=== PATIENT | male | born 1945 | race Caucasian/White ===

== ENCOUNTER 2018-01-12 07:16 | Outpatient (CLI) | payer MEDICARE | END 2018-01-12 07:17 | disposition home or self-care (01) | LOC: BICULT 07:16 | PROVIDERS: ATTEND Family Medicine | DX: Z13.6 Encounter for screening for cardiovascular disorders (principal); Z00.00 Encounter for general adult medical examination without abnormal findings | CPT/HCPCS: 76775 ==

== ENCOUNTER 2019-03-07 07:30 | Outpatient (CLI) | payer MEDICARE ==
--- NOTE | 2019-03-07 08:27 | MRI ---
MRI Cervical Spine WO Con HISTORY: Neck pain and bilateral hand numbness for about 6 months. COMPARISON: None. FINDINGS: The vertebral bodies are normal in height. There is disc narrowing at C5-6. Cord signal yadiel nge is normal. Minimal anterolisthesis of C7 on T1 is noted. C2-3: Unremarkable. C3-4: Mild facet hypertrophic changes are associated with a mild to moderate degree of right-sided fo raminal narrowing and mild left-sided foraminal narrowing. C4-5: Minimal posterior osteophytic changes seen at this level. No significant canal stenosis. Facet and uncovertebral hypertrophic changes cause a mild to moderate right foraminal narrowing. C5-6: There is a broad-based posterior osteophytic bar and disc changes at this level associated with a moderate degree of canal narrowing and moderate right and moderately severe left foraminal stenosis C6-7: No significant canal or foraminal narrowing at this level C7-T1: Asymmetric left-sided facet and uncovertebral changes are associated with a moderate left fora bossman stenosis IMPRESSION: Multilevel areas of canal and foraminal stenosis as described above.
--- NOTE | 2019-03-07 08:34 | RAD ---
XR Cervical Spine 4 View Min HISTORY: Neck pain and bilateral arm pain. COMPARISON: None. FINDINGS: The C7 vertebral body is not well visualized on these images. There is mild disc narrowing at the C5-6 level with prominent anterior osteophytic change. Also degenerative facet changes are seen along the course of the spine. Restricted motion is seen at the C5-6 level. No abnormal motion i n flexion or extension. Incidental note of moderate carotid bulb calcifications. IMPRESSION: Arthritic changes of the spine.
== END 2019-03-07 07:31 | disposition home or self-care (01) ==
LOC: BICMRI 07:30
PROVIDERS: ATTEND Surgery
DX: R20.2 Paresthesia of skin (principal); M47.812 Spondylosis without myelopathy or radiculopathy, cervical region; M48.03 Spinal stenosis, cervicothoracic region
CPT/HCPCS: 72050; 72141

== ENCOUNTER 2019-04-21 09:16 | Outpatient (CLI) | payer MEDICARE ==
[2019-04-21 14:12] LABS: #Eosinphils 0.3 thou/uL (0.0-0.7); #Monocytes 0.5 thou/uL (0.11-0.59); #Neutrophils 3.4 thou/uL (1.40-6.50); %Basophils 0.1 % (0.0-1.0); %Lymphocytes 32.2 % (21.0-51.0); %Monocytes 8.5 % (0.0-10.0); %Neutrophils 55.1 % (42.0-75.0); Hemoglobin 14.9 g/dL (14.0-18.0); Mean Corpuscular HGB CONC 34.9 g/dL (32.0-36.0); Mean Corpuscular Hemoglobin 32.1 pg (27.0-31.0); Mean Platelet Volume 6.9 fL (7.4-10.4); Platelet Count 202 thou/uL (130-400); RBC Distribution Width 11.8 % (11.5-14.5); Red Blood Cell (RBC) Count 4.64 mill/uL (4.70-6.10); White Blood Cell (WBC) Count 6.3 thou/uL (4.8-10.8)
[2019-04-21 14:16] LABS: Bacteria/HPF None Seen HPF (None Seen); Bilirubin Negative (Negative); Blood, Urine Negative (Negative); Clarity Clear (Clear); Glucose, Urine (Dipstick) Normal (Negative); Leukocyte Negative Leu/uL (Negative); Nitrite Negative (Negative); Protein, Urine (Dipstick) Negative (Neg-Trace); RBC/HPF 0-3 HPF (0-3); Squamous Epithelial None Seen HPF (0-3); Urobilinogen Normal mg/dL (Less than 2); WBC/HPF 0-3 HPF (0-3)
--- NOTE | 2019-04-21 16:33 | EKG ---
Test Reason : Blood Pressure : / mmHG Vent. Rate : 072 BPM Atrial Rate : 072 BPM P-R Int : 198 ms QRS Dur : 084 ms QT Int : 368 ms P-R-T Axes : 062 057 031 degrees QTc Int : 402 ms Normal sinus rhythm Normal ECG No previous ECGs available Confirmed by SANJIV KENT, DR. Galvan ([id number]) on 04/21/2019 4:32:42 PM Referred By: LEOLA Confirmed By:DR. Cole KINCAID MD
== END 2019-04-21 09:17 | disposition home or self-care (01) ==
LOC: LABBT 09:16
PROVIDERS: ATTEND Orthopaedic Surgery Hand Surgery
DX: Z01.818 Encounter for other preprocedural examination (principal); G56.02 Carpal tunnel syndrome, left upper limb
CPT/HCPCS: 81001; 85025; 93005; 93010

== ENCOUNTER 2019-04-25 08:48 | Day surgery (SDC) | payer MEDICARE ==
[2019-04-21 13:35] VITALS: BMI 27.7
[2019-04-25] MEDS ORDERED: ceFAZolin Sodium (SDC) 2 GM/100 ML BAG ONE (09:43)
[2019-04-25] MEDS ORDERED: Bacitracin Zinc Ointment 30 gm TUBE ONE (10:41)
[2019-04-25] MEDS ORDERED: Betamet Acet/Betamet Na Ph 30 MG/5 ML VIAL ONE (10:41)
[2019-04-25] MEDS ORDERED: Bupivacaine PF 0.5% 30 ML VIAL ONE (10:41)
[2019-04-25] MEDS ORDERED: PROPOFOL 200 MG/20 ML VIAL ONE (11:45)
[2019-04-25] MEDS ORDERED: Ketorolac Tromethamine 30 MG/ML VIAL ONE (12:20)
--- NOTE | 2019-04-26 09:53 | OP ---
DATE OF PROCEDURE: 04/25/2019 PREOPERATIVE DIAGNOSIS: Left carpal tunnel syndrome. POSTOPERATIVE DIAGNOSIS: Left carpal tunnel syndrome. FINDINGS: Tight transverse carpal ligament over the median nerve and early median nerve stippling and erythema over 1 cm area without allograft formation. SURGERY INDICATIONS: The patient failed conservative treatment with for carpal tunnel syndrome TOURNIQUET TIME: 60 minutes. ESTIMATED BLOOD LOSS: 10 mL. DESCRIPTION OF PROCEDURE: After successful general LMA technique, the limb was prepped and draped. The patient had the outlined incision made after time-out appropriately, carried through skin and subcutaneous tissue with the tourniquet inflated to 250 mmHg pressure. We placed a dose of Marcaine 10 mL before incision and then 10 mL after the incision was closed over 2.5 cm area. This was carried through skin and subcutaneous tissue. We identified the transcarpal ligament using the help of retractors. We were able to now identify, but released it. We did this under direct visualization using combination of Adair blade and tenotomy scissors. The arch was intact. The patient then had the tourniquet deflated and hemostasis obtained. We closed the incision in interrupted 4-0 nylon mattress pattern. The patient left the operating room without evidence of anesthetic operative complication. Job ID: [id number]
== END 2019-04-25 13:45 | disposition home or self-care (01) ==
LOC: SDC 08:48
PROVIDERS: ATTEND Orthopaedic Surgery Hand Surgery
PROC: 01N50ZZ Release Median Nerve, Open Approach (ICD-10-PCS; principal; 2019-04-25)
DX: G56.03 Carpal tunnel syndrome, bilateral upper limbs (principal); Z79.899 Other long term (current) drug therapy
CPT/HCPCS: J0690; J0702; J1885; J2704; S0020

== ENCOUNTER 2022-11-27 13:06 | Outpatient (CLI) | payer MEDICARE ==
[2022-11-27 14:44] LABS: #Eosinphils 0.4 10x3/uL (0.0-0.5); #Monocytes 0.5 10x3/uL (0.0-1.1); #Neutrophils 3.6 10x3/uL (1.5-8.4); %Basophils 0.5 % (0.0-2.0); %Lymphocytes 25.4 % (18.0-47.0); %Monocytes 7.5 % (0.0-10.0); %Neutrophils 60.1 % (40.0-75.0); Hemoglobin 13.9 g/dL (13.5-17.5); Mean Corpuscular HGB CONC 33.6 g/dL (32.0-36.0); Mean Corpuscular Hemoglobin 30.5 pg (27.0-33.0); Mean Corpuscular Volume 90.8 fl (81.2-95.1); Mean Platelet Volume 9.5 fl (7.4-10.4); Platelet Count 225 10x3/uL (150-450); RBC Distribution Width 12.6 % (11.5-14.5); Red Blood Cell (RBC) Count 4.56 10x6/uL (4.32-5.72)
== END 2022-11-27 13:07 | disposition home or self-care (01) ==
LOC: LABBT 13:06
PROVIDERS: ATTEND Orthopaedic Surgery Hand Surgery
DX: Z01.818 Encounter for other preprocedural examination (principal); G56.01 Carpal tunnel syndrome, right upper limb
CPT/HCPCS: 85025; 93005; 93010